=== PATIENT | female | born 1995 | race Hispanic/Latino ===

== ENCOUNTER → 2016-04-09 | Outpatient (CLI) | payer OTHER ==
[~2016-04-09] MED LIST: CEPH-507 PO; DOCU100C37 PO; FAMO-119 PO; HYDR-3812 PO; IBUP-1773 PO; NITR-65 PO; PREN1TAB86 PO
--- OUTSIDE RECORDS SUMMARY | 2016-04-09 09:05 | XMS REPORT | Continuity of Care Document ---
Author Author [facility] Organization [facility] Address Unknown Phone Unavailable Care Team Providers Care License Inspector Name Role Phone BRIGETTE NAJERA MD PCP Insurance Providers Payer Name Policy Number Subscriber Name Relationship Self Pay Pending Penny Apprv [id number] Ramón Cid 18 Self / Same As Patient Advance Directives Directive Response Recorded Date/Time Advance Directives No 02/11/16 6:20am Health Care Power of Corporate Director Of Pharmacy No 02/11/16 6:20am Organ Donor No 02/11/16 6:20am Resuscitation Status Full Code 02/11/16 6:20am Problems Active Problems Medical Problem Onset Date Status Epigastric pain Unknown Acute Pelvic pain affecting Unknown Acute Spontaneous miscarriage Unknown Acute Threatened miscarriage Unknown Acute Threatened miscarriage in early Unknown Acute Urinary tract infection Unknown Acute Vaginal bleeding in Unknown Acute Medications Current Home Medications Medication Dose Units Route Directions Days/Qty Instructions Start Date Vit W-Ca,Fe,Fa(<1 Mg) 1 Each 1 Each Oral Daily 02/01/16 Ibuprofen 600 Mg 600 Mg Oral Every 6 Hours 80 02/12/16 Hydrocodone/Acetaminophen 1 Each 1-2 Tab Oral Every 4HRS as needed for Pain 50 02/12/16 Docusate Sodium 100 Mg 100 Mg Oral Twice A Day as needed for Constipation 40 02/12/16 Past Home Medications Medication Directions Ordered Status Cephalexin 500 Mg Capsule, 500 Mg Oral Four Times Daily 10/27/14 Discontinued Famotidine 20 Mg Tablet, 20 Mg Oral Twice A Day 10/27/14 Discontinued Nitrofurantoin Monohyd/M-Cryst 100 Mg Capsule, 100 Mg Oral Twice A Day Discontinued Hydrocodone/Acetaminophen 1 Each Tablet, 1 Each Oral Every 4HRS as needed for Pain 11/26/14 Discontinued Social History Social History Problem Response Recorded Date/Time Alcohol Use Denies Use 11/26/2014 3:55pm Recreational Drug Use No 11/26/2014 3:55pm Recent Foreign Travel No 02/11/2016 6:18am Recent Infectious Disease Exposure No 02/11/2016 6:18am Sexually Transmitted Disease No 02/11/2016 6:32am HIV/AIDS No 02/11/2016 6:32am Smoking Status Never a Smoker 02/11/2016 6:31am Recent Hopitalizations No 02/11/2016 6:32am Sexually Transmitted Disease No 02/11/2016 6:32am Query Response Start Date Stop Date Smoking Status Never a Smoker Hospital Discharge Instructions Patient Instructions Physician Instructions New, Converted or Re-Newed RX: RX on Chart Additional Follow Up: Yes Orders/Referrals Dr. Segovia in 7-10 days. [facility] in 6 weeks Activity: Activity as Tolerated Driving Instructions: No Driving for 1 Week NO SMOKING: NO SMOKING Nothing Inside Vagina: No Douching, No [place], No Tampons Discharge Diet: No Restrictions Symptoms to Report to : Bleeding Excessive, Pain Increased, Fever Over 101 Degrees F, Vaginal Bleeding Increase, Questions/Concerns For Any Problems or Questions: Contact Your Physician Infection Signs and Symptoms: Increased Redness, Foul Odor of Wound, Increased Drainage, Skin Itchy or Has a Rash, Increased Swelling, Temperature Above 101 F Operative Area Clean and Dry: Keep Incision Clean/Dry Stitches/Xenia/Dermabond: Dermabond, Care of Stitches Bathing Instructions: Shower Plan of Care Discharge Date 02/13/16 3:15pm Disposition 01 HOME, SELF-CARE Instructions/Education Provided DISCHARGE SECTION DISCHARGE Forms Provided PDI Prescriptions See Medication Section Referrals (Unspecified) - Reason(s) for Referral: 1 week incision follow up appointment with on February 20 @ 3:15. 6 week post appointment with @ [facility] on March 25 @ 10:40 Additional Instructions/Education call with questions or concerns. follow up as scheduled. Care Plan and Goals See Discharge Instructions Section Functional Status Query Response Date Recorded Patient Orientation Person Place Time Situation Eyes Open Normal For Age February 13, 2016 3:21pm Allergies, Adverse Reactions, Alerts No known allergies. Immunizations No immunization records. Vital Signs Acute Vital Signs Vital Response Date/Time Temperature (Fahrenheit) 97.8 degrees F (97.6 - 99.5) 02/13/2016 2:30pm Temperature (Calculated Celsius) 36.79418 degrees C (36.4 - 37.5) 02/13/2016 2:30pm Temperature Source Temporal 02/13/2016 2:30pm Pulse Rate (adult) 83 bpm (60 - 90) 02/13/2016 2:30pm Respiratory Rate 18 bpm (12 - 24) 02/13/2016 2:30pm O2 Sat by Pulse Oximetry 98 % (88 - 100) 02/13/2016 2:30pm Blood Pressure 119/76 mm Hg 02/13/2016 2:30pm Blood Pressure Mean 90 mm Hg 02/13/2016 2:30pm Pain Numeric Pain Scale 2 02/13/2016 2:30pm Pain Intensity 2 02/13/2016 6:00am Height (Feet) 5 feet 02/11/2016 6:22am Height (Inches) 0.00 inches 02/11/2016 6:22am Height (Calculated Centimeters) 152.291219 cm 02/11/2016 6:22am Weight (Pounds) 160 pounds 02/11/2016 6:22am Weight (Ounces) 8.0 oz 02/11/2016 6:22am Weight (Calculated Grams) 35462.58 gm 02/11/2016 6:22am Weight (Calculated Kilograms) 72.193875 kilograms 02/11/2016 6:22am Calculated BMI 31.4 02/11/2016 6:22am Results Laboratory Results Test Name Result Units Flags Reference Collection Date/Time Result Date/ Time Comments White Blood Count 10.4 10^3/uL 4.3-11.0 02/12/2016 5:20am 02/12/2016 5: 52am Red Blood Count 4.27 10^6/uL L 4.35-5.85 02/12/2016 5:20am 02/12/2016 5: 52am Hemoglobin 11.9 G/DL 11.5-16.0 02/12/2016 5:02/12/2016 5:52am Hematocrit 35 % 35-52 02/12/2016 5:2002/12/2016 5:52am Mean Corpuscular Volume 83 FL 80-99 02/12/2016 5:02/12/2016 5: 52am Mean Corpuscular Hemoglobin 28 PG 25-34 02/12/2016 5:2002/12/2016 5: 52am Mean Corpuscular Hemoglobin Concent 34 G/DL 32-36 02/12/2016 5: 5:52am Red Cell Distribution Width 14.9 % H 10.0-14.5 02/12/2016 5:2015 5:52am Platelet Count 208 10^3/uL 130-400 02/12/2016 5:02/12/2016 5:52am Mean Platelet Volume 10.0 FL 7.4-10.4 02/12/2016 5:02/12/2016 5: 52am Neutrophils (%) (Auto) 64 % 42-75 02/12/2016 5:02/12/2016 5:52am Lymphocytes (%) (Auto) 20 % 12-44 02/12/2016 5:02/12/2016 5:52am Monocytes (%) (Auto) 7 % 0-12 02/12/2016 5:02/12/2016 5:52am Eosinophils (%) (Auto) 9 % 0-10 02/12/2016 5:02/12/2016 5:52am Basophils (%) (Auto) 0 % 0-10 02/12/2016 5:02/12/2016 5:52am Neutrophils # (Auto) 6.7 X 10^3 1.8-7.8 02/12/2016 5:2002/12/2016 5: 52am Lymphocytes # (Auto) 2.1 X 10^3 1.0-4.0 02/12/2016 5:02/12/2016 5: 52am Monocytes # (Auto) 0.7 X 10^3 0.0-1.0 02/12/2016 5:20am 02/12/2016 5: 52am Eosinophils # (Auto) 0.9 10^3/uL H 0.0-0.3 02/12/2016 5:20am 02/12/2016 5 :52am Basophils # (Auto) 0.0 10^3/uL 0.0-0.1 02/12/2016 5:20am 02/12/2016 5: 52am Pending Laboratory Results Test Name Collection Date/Time Pending Microbiology Results Procedure Source Collection Date/Time Procedures Procedure Status Date Provider(s) section Completed 02/11/16 IVETTE SEGOVIA DO Encounters Encounter Location Arrival/Admit Date Discharge/Depart Date Attending Provider Admitted Inpatient [facility] 02/11/16 6:01am IVETTE SEGOVIA DO Departed Clinic [facility] 02/04/16 8:29am 02/04/16 8: 50am IVETTE SEGOVIA DO Departed Clinic [facility] 02/01/16 3:50pm 02/01/16 5: 36pm BRIGETTE NAJERA MD
--- NOTE | 2016-04-09 09:52 | Diagnostic Imaging Report ---
INDICATION: Elevated liver enzymes. EXAMINATION: Liver ultrasound. FINDINGS: The liver parenchyma has homogeneous echogenicity. There are no masses. The gallbladder is clear with no stones or wall thickening. The common duct is not dilated. The pancreas and right kidney appear normal. There is no ascites. IMPRESSION: Negative gallbladder sonogram. Dictated by: Dictated on workstation # [id number]
== END ==
LOC: RAD 09:01
PROVIDERS: ATTEND Family Medicine
DX: R74.8 Abnormal levels of other serum enzymes (principal)
CPT/HCPCS: 76705

== ENCOUNTER → 2017-01-30 | Outpatient (CLI) | payer OTHER ==
--- NOTE | 2017-01-30 14:52 | Diagnostic Imaging Report ---
INDICATION: survey. TECHNIQUE: Multiple real-time grayscale images were obtained over the gravid uterus. COMPARISON: None. FINDINGS: heart rate is 142 beats per minute. The placenta is posterior. No placenta previa. Amniotic fluid appears normal. The cervix is 3.5 cm in length and is closed. There is no ventriculomegaly. The posterior fossa is normal. The bladder appears unremarkable. Two umbilical arteries are seen. The cord insertion is normal. The stomach, the kidneys, and the four-chamber view appear unremarkable. The upper spine is not well seen on this exam. The maternal adnexa are not visualized, probably obscured by bowel gas. Biometrical measurements are as follows: Biparietal 4.3 cm, age 19 weeks 1 days. Head circumference 16.0 cm, age 18 weeks 6 days. Abdominal circumference 13.4 cm, age 19 weeks 0 days. Femur length 2.9 cm, age 19 weeks 0 days. Sonographic estimate age: 19 weeks 0 days. Sonographic estimated date of delivery: 06/26/2017. Estimated Weight: 263 gm (+/- 38 gm). LMP percentile: 19%. heart rate: 142 beats per minute. number: 1 of 1. IMPRESSION: Live single intrauterine . The upper spine is not well seen due to position. Consider follow-up exam to reassess. Dictated by: Dictated on workstation # [id number]
== END ==
LOC: RAD 09:37
PROVIDERS: ATTEND Family Medicine
DX: Z36.87 Encounter for antenatal screening for uncertain dates (principal); Z3A.19 19 weeks gestation of pregnancy
CPT/HCPCS: 76805

== ENCOUNTER 2017-05-02 21:38 | Outpatient (CLI) | payer SELFPAY ==
[~2017-05-02] VITALS: Ht 149.9 cm; Wt 70.8 kg
[~2017-05-02 21:38] MED LIST changes: +ACHD5005 PO; -HYDR-3812 PO
[2017-05-02 21:54] VITALS: BP 120/66
[2017-05-02 22:06] LABS: BILIRUBIN,URINE NEGATIVE (NEGATIVE); CLARITY,URINE CLEAR; COLOR,URINE YELLOW; GLUCOSE, URINE (UA) NEGATIVE (NEGATIVE); KETONES,URINE NEGATIVE (NEGATIVE); LEUKOCYTE ESTERASE ,URINE NEGATIVE (NEGATIVE); NITRITE,URINE NEGATIVE (NEGATIVE); PH,URINE 7 (5-9); PROTEIN,URINE NEGATIVE (NEGATIVE); UROBILINOGEN,URINE NORMAL (NORMAL)
[2017-05-02 22:15] LABS: SQUAMOUS EPITHELIAL CELL,UR 0-2 /HPF
[2017-05-02] MEDS ORDERED: hydrOXYzine (VISTARIL) 25 MG CAP PO ONE (22:30)
[2017-05-02] MEDS ORDERED: TERBUTALINE INJ 1 MG/ML (BRETHINE) AMP SC ONE (23:45)
[2017-05-03 00:15] VITALS: BP 101/62
--- NOTE | 2017-05-04 15:44 | Physician Query-Final Dx ---
SOLOMON GUZMAN 05/04/17 1544: Clinic Account Progress/Dx Physician Query: Please give diagnosis Date of Service May 02, 2017 at 21:38 CRYSTAL ARGUETA MD 05/13/17 2113: Clinic Account Progress/Dx DIAGNOSIS: Diagnosis contractions SOLOMON GUZMAN May 04, 2017 15:44 CRYSTAL ARGUETA MD May 13, 2017 21:13
== END 2017-05-03 00:40 | disposition home or self-care (01) ==
LOC: WSo 21:38 → LDRP 21:39 → WSo 05-03 00:40
PROVIDERS: ATTEND Family Medicine
DX: O47.03 False labor before 37 completed weeks of gestation, third trimester (principal); Z3A.32 32 weeks gestation of pregnancy
CPT/HCPCS: 81000; 96372; 99213

== ENCOUNTER 2017-06-10 04:36 | Outpatient (CLI) | payer OTHER ==
[~2017-06-10] VITALS: Ht 149.9 cm; Wt 74.4 kg
[2017-06-10 04:44] VITALS: BP 119/71
[2017-06-10 06:26] VITALS: BP 119/71
--- NOTE | 2017-06-11 13:12 | Physician Query-Final Dx ---
KERI BE 06/11/17 1312: Clinic Account Progress/Dx Physician Query: Please give diagnosis Date of Service Jun 10, 2017 at 04:36 BRIGETTE NAJERA MD 06/12/17 0919: Clinic Account Progress/Dx DIAGNOSIS: Diagnosis 38 weeks gestation prior contractions with no cervical change KERI BE Jun 11, 2017 13:12 BRIGETTE NAJERA MD Jun 12, 2017 09:19
== END 2017-06-10 06:25 | disposition home or self-care (01) ==
LOC: LDRP 04:36 → WSo 04:36
PROVIDERS: ATTEND Family Medicine
DX: O47.1 False labor at or after 37 completed weeks of gestation (principal); O34.219 Maternal care for unspecified type scar from previous cesarean delivery; Z3A.38 38 weeks gestation of pregnancy
CPT/HCPCS: 99214

== ENCOUNTER 2017-06-10 13:02 | Outpatient (CLI) | payer OTHER ==
[~2017-06-10] VITALS: Ht 157.5 cm; Wt 75.3 kg
[2017-06-10 13:15] VITALS: BP 101/62
== END 2017-06-10 13:26 | disposition home or self-care (01) ==
LOC: PREOP 13:02
PROVIDERS: ATTEND Obstetrics & Gynecology
DX: Z01.818 Encounter for other preprocedural examination (principal); Z11.2 Encounter for screening for other bacterial diseases; O34.211 Maternal care for low transverse scar from previous cesarean delivery
CPT/HCPCS: 87081

== ENCOUNTER 2017-06-18 06:50 | Inpatient (IN) | payer OTHER ==
[~2017-06-18] VITALS: Ht 157.5 cm; Wt 73.9 kg
[2017-06-18] VITALS (7 sets, daily range): BP systolic 92–129; BP diastolic 59–74
[2017-06-18] MEDS ORDERED: FAMOTIDINE 20MG/2ML IV (PEPCID) IV ONE (07:15)
[2017-06-18] MEDS ORDERED: CITRIC ACID/SOB CIT (BICITRA) 30 ML UDC PO ONE (07:15)
[2017-06-18] MEDS ORDERED: ceFAZolin 2 GM IV Premixed 50 ML IV ONE (07:15)
[2017-06-18] MEDS ORDERED: METOCLOPRAMIDE INJ 10 MG/2 ML (REGLAN) IV ONE (07:15)
--- NOTE | 2017-06-18 07:24 | Progress Note-Pre Operative ---
Pre-Operative Progress Note H&P Reviewed The H&P was reviewed, patient examined and no changes noted. Date Seen by Provider: Jun 18, 2017 Time Seen by Provider: 07:20 Date H&P Reviewed: Jun 18, 2017 Time H&P Reviewed: 07:20 Pre-Operative Diagnosis: Previous , 39 weeks IVETTE PEREZ DO Jun 18, 2017 7:24 am
[2017-06-18] MEDS: LACTATED RINGERS 1,000 ML IV PRN ×2 (07:30→08:31)
[2017-06-18 07:55] LABS: BASOPHILS % (AUTO) 0 % (0-10); EOSINOPHILS # (AUTO) 1.1 10^3/uL (0.0-0.3); EOSINOPHILS % (AUTO) 10 % (0-10); HEMATOCRIT 37 % (35-52); HEMOGLOBIN 12.6 G/DL (11.5-16.0); LYMPHOCYTES # (AUTO) 1.5 X 10^3 (1.0-4.0); LYMPHOCYTES % (AUTO) 14 % (12-44); MEAN CORPUSCULAR HEMOGLOBIN 28 PG (25-34); MEAN CORPUSCULAR HGB CONC 34 G/DL (32-36); MEAN CORPUSCULAR VOLUME 81 FL (80-99); MEAN PLATELET VOLUME 10.4 FL (7.4-10.4); MONOCYTES # (AUTO) 0.9 X 10^3 (0.0-1.0); MONOCYTES % (AUTO) 8 % (0-12); NEUTROPHILS # (AUTO) 7.4 X 10^3 (1.8-7.8); NEUTROPHILS % (AUTO) 68 % (42-75); PLATELET COUNT 195 10^3/uL (130-400); RED CELL DISTRIBUTION WIDTH 16.6 % (10.0-14.5); WHITE BLOOD COUNT 10.9 10^3/uL (4.3-11.0)
[2017-06-18 08:04] LABS: BILIRUBIN,URINE NEGATIVE (NEGATIVE); CLARITY,URINE CLEAR; COLOR,URINE YELLOW; GLUCOSE, URINE (UA) NEGATIVE (NEGATIVE); KETONES,URINE NEGATIVE (NEGATIVE); LEUKOCYTE ESTERASE ,URINE 1+ (NEGATIVE); NITRITE,URINE NEGATIVE (NEGATIVE); PH,URINE 7 (5-9); PROTEIN,URINE NEGATIVE (NEGATIVE); UROBILINOGEN,URINE NORMAL (NORMAL)
[2017-06-18 08:35] LABS: BACTERIA,URINE TRACE /HPF
[2017-06-18] MEDS ORDERED: DEXAMETHASONE 10 MG/ML (DECADRON) 1 ML VIAL ONE (08:39)
[2017-06-18] MEDS ORDERED: ONDANSETRON 4 MG/2 ML (SDV) Z0FRAN ONE (08:39)
[2017-06-18] MEDS ORDERED: fentaNYL INJECTION 100 MCG/2 ML AMP ONE (08:42)
[2017-06-18] MEDS ORDERED: OXYTOCIN/NORMAL SALINE 1,000 ML IV ONE (08:59)
[2017-06-18] MEDS ORDERED: KETOROLAC 30 MG/ML VIAL ONE (09:02)
[2017-06-18] MEDS: KETOROLAC 30 MG/ML VIAL IVP SCH ×3 (09:30→23:10)
[2017-06-18] MEDS ORDERED: PHENYLEPHRINE 100 MCG/ML 10 ML (ANESTHESIA) SYR ONE (09:42)
[2017-06-18] MEDS ORDERED: OXYTOCIN/NORMAL SALINE 500 ML IV SCH (09:48)
--- NOTE | 2017-06-18 09:50 | Discharge Inst-Women's Service ---
Discharge Inst-Women's Serv Depart Medication/Instructions New, Converted or Re-Newed RX: RX on Chart Consults/Follow Up Additional Follow Up: Yes Orders/Referrals DR. Segovia in 7-[address] Gtz in 6 weeks Activity Activity: Activity as Tolerated Driving Instructions: No Driving for 1 Week NO SMOKING: NO SMOKING Nothing Inside Vagina: No Douching, No [place], No Tampons Diet Discharge Diet: No Restrictions Symptoms to Report to : Bleeding Excessive, Pain Increased, Fever Over 101 Degrees F, Vaginal Bleeding Increase, Questions/Concerns For Any Problems or Questions: Contact Your Physician Skin/Wound Care Infection Signs and Symptoms: Increased Redness, Foul Odor of Wound, Increased Drainage, Skin Itchy or Has a Rash, Increased Swelling, Temperature Above 101 F Operative Area Clean and Dry: Keep Incision Clean/Dry Stitches/[place]/Dermabond: Dermabond, Care of Stitches Bathing Instructions: IVETTE Chow DO Jun 18, 2017 9:50 am
[2017-06-18] MEDS ORDERED: DOCU100C37 PO (09:52)
[2017-06-18] MEDS ORDERED: ACHD5005 PO (09:52)
[2017-06-18] MEDS ORDERED: IBUP-1773 PO (09:52)
[2017-06-18] MEDS ORDERED: ONDANSETRON 4 MG/2 ML (SDV) Z0FRAN IVP PRN (10:00)
[2017-06-18] MEDS ORDERED: HYDROmorphone (DILAUDID) 2 MG/ML VIAL IVP PRN (10:00)
[2017-06-18] MEDS ORDERED: TETANUS,DIPTH,PERTUSS P/F (BOOSTRIX) 0.5 ML VIAL IM SCH (10:00)
[2017-06-18] MEDS ORDERED: MEASLES,MUMPS,RUBELLA 1 EA INJ SC SCH (10:00)
--- OUTSIDE RECORDS SUMMARY | 2017-06-18 11:07 | XMS REPORT | Continuity of Care Document ---
Author Author [facility] Organization [facility] Address Unknown Phone Unavailable Allergies Active Description Code Type Severity Reaction Onset Reported/Identified Relationship to Patient Clinical Status Yes No Known Drug Allergies [id number] Drug Allergy Unknown N/A 06/10/2017 Medications There is no data. Problems Date Dx Coded Attending Type Code Diagnosis Diagnosed By 10/27/2014 YULIA CARSON MD Ot 599.0 URIN TRACT INFECTION NOS 10/27/2014 YULIA CARSON MD Ot 789.04 ABDOMINAL PAIN, LEFT LOWER QUADRANT 10/27/2014 YULIA CARSON MD Ot 789.06 ABDOMINAL PAIN, EPIGASTRIC 10/27/2014 YULIA CARSON MD Ot N39.0 URINARY TRACT INFECTION, SITE NOT SPECIF 10/27/2014 YULIA CARSON MD Ot R10.13 EPIGASTRIC PAIN 11/22/2014 YULIA CARSON MD Ot 623.8 NONINFLAM DIS VAGINA NEC 11/22/2014 YULIA CARSON MD Ot 640.03 THREATEN ABORT-ANTEPART 11/22/2014 YULIA CARSON MD Ot O20.0 THREATENED 11/25/2014 LANA FARLEY DOA Rocio Ot 599.0 URIN TRACT INFECTION NOS 11/25/2014 LANA FARLEY DOA K Ot 640.03 THREATEN ABORT-ANTEPART 11/25/2014 LANA FARLEY DOA K Ot 646.63 INFECTION-ANTEPARTUM 11/25/2014 GUANAKO FARLEY DO K Ot N39.0 URINARY TRACT INFECTION, SITE NOT SPECIF 11/25/2014 LANA FARLEY DOA K Ot O20.0 THREATENED 11/26/2014 DEBBIE MARX Ot 623.8 NONINFLAM DIS VAGINA NEC 11/26/2014 DEBBIE MARX Ot 634.90 SPON ABORT UNCOMPL-UNSP 11/26/2014 [place], DEBBIE Jaquez Ot O03.9 COMPLETE OR UNSP SPONTANEOUS [place] 08/10/2015 OCTAVIO GILLILAND DO Ot 640.03 THREATEN ABORT-ANTEPART 08/10/2015 OCTAVIO GILLILAND DO Ot 659.73 ABN FET HT RT/RHYTHM,ANTEPARTUM COND OR 08/14/2015 BRIGETTE NAJERA MD Ot O34.21 MATERNAL CARE FOR SCAR FROM PREVIOUS CRISTÓBAL 08/14/2015 BRIGETTE NAJERA MD Ot Z3A.12 12 WEEKS GESTATION OF 08/14/2015 BRIGETTE NAJERA MD, Ot O34.21 MATERNAL CARE FOR SCAR FROM PREVIOUS CRISTÓBAL 08/14/2015 BRIGETTE NAJERA MD, Ot Z3A.12 12 WEEKS GESTATION OF 08/28/2015 OCTAVIO GILLILAND DO Ot 640.03 THREATEN ABORT-ANTEPART 08/28/2015 OCTAVIO GILLILAND DO Ot 659.73 ABN FET HT RT/RHYTHM,ANTEPARTUM COND OR 08/28/2015 BRIGETTE NAJERA MD Ot O34.21 MATERNAL CARE FOR SCAR FROM PREVIOUS CRISTÓBAL 08/28/2015 BRIGETTE NAJERA MD Ot Z3A.12 12 WEEKS GESTATION OF 08/28/2015 OCTAVIO GILLILAND DO Ot 640.03 THREATEN ABORT-ANTEPART 08/28/2015 OCTAVIO GILLILAND DO Ot 659.73 ABN FET HT RT/RHYTHM,ANTEPARTUM COND OR 08/28/2015 BRIGETTE NAJERA MD Ot O34.21 MATERNAL CARE FOR SCAR FROM PREVIOUS CRISTÓBAL 08/28/2015 BRIGETTE NAJERA MD Ot Z3A.12 12 WEEKS GESTATION OF 08/28/2015 OCTAVIO GILLILAND DO Ot 640.03 THREATEN ABORT-ANTEPART 08/28/2015 OCTAVIO GILLILAND DO Ot 659.73 ABN FET HT RT/RHYTHM,ANTEPARTUM COND OR 10/16/2015 OCTAVIO GILLILAND DO Ot 640.03 THREATEN ABORT-ANTEPART 10/16/2015 OCTAVIO GILLILAND DO Ot 659.73 ABN FET HT RT/RHYTHM,ANTEPARTUM COND OR 10/16/2015 BRIGETTE NAJERA MD Ot O34.21 MATERNAL CARE FOR SCAR FROM PREVIOUS CRISTÓBAL 10/16/2015 BRIGETTE NAJERA MD, Ot Z3A.12 12 WEEKS GESTATION OF 10/22/2015 OCTAVIO GILLILAND DO Ot 640.03 THREATEN ABORT-ANTEPART 10/22/2015 OCTAVIO GILLILAND DO Ot 659.73 ABN FET HT RT/RHYTHM,ANTEPARTUM COND OR 10/22/2015 BRIGETTE NAJERA MD Ot O34.21 MATERNAL CARE FOR SCAR FROM PREVIOUS CRISTÓBAL 10/22/2015 BRIGETTE NAJERA MD, Ot Z3A.12 12 WEEKS GESTATION OF 10/22/2015 BRIGETTE NAJERA MD, Ot O34.21 MATERNAL CARE FOR SCAR FROM PREVIOUS CRISTÓBAL 10/22/2015 BRIGETTE NAJERA MD, Ot Z36 ENCOUNTER FOR SCREENING OF MOT 10/22/2015 BRIGETTE NAJERA MD, Ot Z3A.22 22 WEEKS GESTATION OF 10/22/2015 OCTAVIO GILLILAND DO, Ot 640.03 THREATEN ABORT-ANTEPART 10/22/2015 OCTAVIO GILLILAND DO Ot 659.73 ABN FET HT RT/RHYTHM,ANTEPARTUM COND OR 11/20/2015 BRIGETTE NAJERA MD, Ot O34.21 MATERNAL CARE FOR SCAR FROM PREVIOUS CRISTÓBAL 11/20/2015 BRIGETTE NAJERA MD Ot Z36 ENCOUNTER FOR SCREENING OF MOT 11/20/2015 BRIGETTE NAJERA MD, Ot Z3A.22 22 WEEKS GESTATION OF 02/01/2016 BRIGETTE NAJERA MD, Ot Z34.82 ENCOUNTER FOR SUPRVSN OF NORMAL PREGNANC 02/04/2016 IVETTE PEREZ DO Ot O34.211 MATERN CARE FOR LOW TRANSVERSE SCAR FROM 02/04/2016 IVETTE PEREZ DO Ot Z01.818 ENCOUNTER FOR OTHER PREPROCEDURAL EXAMIN 02/04/2016 IVETTE PEREZ DO Ot Z11.2 ENCOUNTER FOR SCREENING FOR OTHER BACTER 02/05/2016 IVETTE PEREZ DO Ot O34.211 MATERN CARE FOR LOW TRANSVERSE SCAR FROM 02/05/2016 IVETTE PEREZ DO Ot Z01.818 ENCOUNTER FOR OTHER PREPROCEDURAL EXAMIN 02/05/2016 IVETTE PEREZ DO Ot Z11.2 ENCOUNTER FOR SCREENING FOR OTHER BACTER 02/12/2016 OCTAVIO GILLILAND DO Ot 640.03 THREATEN ABORT-ANTEPART 02/12/2016 COTAVIO GILLILAND DO Ot 659.73 ABN FET HT RT/RHYTHM,ANTEPARTUM COND OR 02/12/2016 BRIGETTE NAJERA MD, Ot O34.21 MATERNAL CARE FOR SCAR FROM PREVIOUS CRISTÓBAL 02/12/2016 BRIGETTE NAJERA MD Ot Z3A.12 12 WEEKS GESTATION OF 02/12/2016 BRIGETTE NAJERA MD Ot O34.21 MATERNAL CARE FOR SCAR FROM PREVIOUS CRISTÓBAL 02/12/2016 BRIGETTE NAJERA MD Ot Z36 ENCOUNTER FOR SCREENING OF MOT 02/12/2016 BRIGETTE NAJERA MD, Ot Z3A.22 22 WEEKS GESTATION OF 02/13/2016 [facility] IVETTE TORRES Ot O34.211 MATERN CARE FOR LOW TRANSVERSE SCAR FROM 02/13/2016 [facility] IVETTE TORRES Ot Z37.0 SINGLE LIVE 02/13/2016 IVETTE PEREZ DO Ot Z3A.39 39 WEEKS GESTATION OF 02/18/2016 BRIGETTE NAJERA MD Ot Z34.82 ENCOUNTER FOR SUPRVSN OF NORMAL PREGNANC 02/29/2016 OCTAVIO GILLILAND DO Ot 640.03 THREATEN ABORT-ANTEPART 02/29/2016 OCTAVIO GILLILAND DO Ot 659.73 ABN FET HT RT/RHYTHM,ANTEPARTUM COND OR 02/29/2016 BRIGETTE NAJERA MD Ot O34.21 MATERNAL CARE FOR SCAR FROM PREVIOUS CRISTÓBAL 02/29/2016 BRIGETTE NAJERA MD, Ot Z3A.12 12 WEEKS GESTATION OF 02/29/2016 BRIGETTE NAJERA MD Ot O34.21 MATERNAL CARE FOR SCAR FROM PREVIOUS CRISTÓBAL 02/29/2016 BRIGETTE NAJERA MD Ot Z36 ENCOUNTER FOR SCREENING OF MOT 02/29/2016 BRIGETTE NAJERA MD, Ot Z3A.22 22 WEEKS GESTATION OF 03/01/2016 BRIGETTE NAJERA MD Ot Z34.82 ENCOUNTER FOR SUPRVSN OF NORMAL PREGNANC 04/09/2016 OCTAVIO GILLILAND DO Ot 640.03 THREATEN ABORT-ANTEPART 04/09/2016 OCTAVIO GILLILAND DO Ot 659.73 ABN FET HT RT/RHYTHM,ANTEPARTUM COND OR 04/09/2016 BRIGETTE NAJERA MD Ot O34.21 MATERNAL CARE FOR SCAR FROM PREVIOUS CRISTÓBAL 04/09/2016 BRIGETTE NAJERA MD, Ot Z3A.12 12 WEEKS GESTATION OF 04/09/2016 BRIGETTE NAJERA MD, Ot O34.21 MATERNAL CARE FOR SCAR FROM PREVIOUS CRISTÓBAL 04/09/2016 BRIGETTE NAJERA MD, Ot Z36 ENCOUNTER FOR SCREENING OF MOT 04/09/2016 BRIGETTE NAJERA MD, Ot Z3A.22 22 WEEKS GESTATION OF 04/11/2016 BRIGETTE NAJERA MD, Ot R74.8 ABNORMAL LEVELS OF OTHER SERUM ENZYMES 04/15/2016 BRIGETTE NAJERA MD, Ot R74.8 ABNORMAL LEVELS OF OTHER SERUM ENZYMES 04/21/2016 BRIGETTE NAJERA MD, Ot R74.8 ABNORMAL LEVELS OF OTHER SERUM ENZYMES 04/22/2016 BRIGETTE NAJERA MD, Ot R74.8 ABNORMAL LEVELS OF OTHER SERUM ENZYMES 01/30/2017 GILLIL[place] DO OCTAVIO K Ot 640.03 THREATEN ABORT-ANTEPART 01/30/2017 [place] DO, OCTAVIO K Ot 659.73 ABN FET HT RT/RHYTHM,ANTEPARTUM COND OR 01/30/2017 BRIGETTE NAJERA MD Ot O34.21 MATERNAL CARE FOR SCAR FROM PREVIOUS CRISTÓBAL 01/30/2017 BRIGETTE NAJERA MD, Ot Z3A.12 12 WEEKS GESTATION OF 01/30/2017 BRIGETTE NAJERA MD, Ot O34.21 MATERNAL CARE FOR SCAR FROM PREVIOUS CRISTÓBAL 01/30/2017 BRIGETTE NAJERA MD, Ot Z36 ENCOUNTER FOR SCREENING OF MOT 01/30/2017 BRIGETTE NAJERA MD, Ot Z3A.22 22 WEEKS GESTATION OF 01/30/2017 BRIGETTE NAJERA MD, Ot R74.8 ABNORMAL LEVELS OF OTHER SERUM ENZYMES 02/02/2017 BRIGETTE NAJERA MD Ot Z36.87 ENCOUNTER FOR SCREENING FOR UN 02/02/2017 BRIGETTE NAJERA MD, Ot Z3A.19 19 WEEKS GESTATION OF 02/26/2017 BRIGETTE NAJERA MD, Ot Z36.87 ENCOUNTER FOR SCREENING FOR UN 02/26/2017 BRIGETTE NAJERA MD, Ot Z3A.19 19 WEEKS GESTATION OF 03/30/2017 BRIGETTE NAJERA MD Ot Z36.87 ENCOUNTER FOR SCREENING FOR UN 03/30/2017 BRIGETTE NAJERA MD, Ot Z3A.19 19 WEEKS GESTATION OF 05/02/2017 OCTAVIO GILLILAND DO K Ot 640.03 THREATEN ABORT-ANTEPART 05/02/2017 ALAN GILLILAND DOA K Ot 659.73 ABN FET HT RT/RHYTHM,ANTEPARTUM COND OR 05/02/2017 BRIGETTE NAJERA MD Ot O34.21 MATERNAL CARE FOR SCAR FROM PREVIOUS CRISTÓBAL 05/02/2017 BRIGETTE NAJERA MD, Ot Z3A.12 12 WEEKS GESTATION OF 05/02/2017 BRIGETTE NAJERA MD, Ot O34.21 MATERNAL CARE FOR SCAR FROM PREVIOUS CRISTÓBAL 05/02/2017 BRIGETTE NAJERA MD, Ot Z36 ENCOUNTER FOR SCREENING OF MOT 05/02/2017 BRIGETTE NAJERA MD, Ot Z3A.22 22 WEEKS GESTATION OF 05/02/2017 BRIGETTE NAJERA MD, Ot R74.8 ABNORMAL LEVELS OF OTHER SERUM ENZYMES 05/02/2017 BRIGETTE NAJERA MD, Ot Z36.87 ENCOUNTER FOR SCREENING FOR UN 05/02/2017 BRIGETTE NAJERA MD, Ot Z3A.19 19 WEEKS GESTATION OF 05/03/2017 BRIGETTE NAJERA MD, Ot O47.03 FALSE LABOR BEFORE 37 COMPLETED WEEKS OF 05/03/2017 BRIGETTE NAJERA MD, Ot Z3A.32 32 WEEKS GESTATION OF 05/05/2017 OCTAVIO GILLILAND DO K Ot 640.03 THREATEN ABORT-ANTEPART 05/05/2017 ALAN GILLILAND DOA K Ot 659.73 ABN FET HT RT/RHYTHM,ANTEPARTUM COND OR 05/05/2017 BRIGETTE NAJERA MD Ot O34.21 MATERNAL CARE FOR SCAR FROM PREVIOUS CRISTÓBAL 05/05/2017 BRIGETTE NAJERA MD, Ot Z3A.12 12 WEEKS GESTATION OF 05/05/2017 BRIGETTE NAJERA MD Ot O34.21 MATERNAL CARE FOR SCAR FROM PREVIOUS CRISTÓBAL 05/05/2017 BRIGETTE NAJERA MD Ot Z36 ENCOUNTER FOR SCREENING OF MOT 05/05/2017 BRIGETTE NAJERA MD Ot Z3A.22 22 WEEKS GESTATION OF 05/05/2017 BRIGETTE NAJERA MD Ot R74.8 ABNORMAL LEVELS OF OTHER SERUM ENZYMES 05/05/2017 BRIGETTE NAJERA MD, Ot Z36.87 ENCOUNTER FOR SCREENING FOR UN 05/05/2017 BRIGETTE NAJERA MD, Ot Z3A.19 19 WEEKS GESTATION OF 05/14/2017 BRIGETTE NAJERA MD, Ot O47.03 FALSE LABOR BEFORE 37 COMPLETED WEEKS OF 05/14/2017 BRIGETTE NAJERA MD, Ot Z3A.32 32 WEEKS GESTATION OF 06/10/2017 OCTAVIO GILLILAND DO Ot 640.03 THREATEN ABORT-ANTEPART 06/10/2017 OCTAVIO GILLILAND DO Ot 659.73 ABN FET HT RT/RHYTHM,ANTEPARTUM COND OR 06/10/2017 BRIGETTE NAJERA MD, Ot O34.21 MATERNAL CARE FOR SCAR FROM PREVIOUS CRISTÓBAL 06/10/2017 BRIGETTE NAJERA MD, Ot Z3A.12 12 WEEKS GESTATION OF 06/10/2017 BRIGETTE NAJERA MD, Ot O34.21 MATERNAL CARE FOR SCAR FROM PREVIOUS CRISTÓBAL 06/10/2017 BRIGETTE NAJERA MD Ot Z36 ENCOUNTER FOR SCREENING OF MOT 06/10/2017 BRIGETTE NAJERA MD Ot Z3A.22 22 WEEKS GESTATION OF 06/10/2017 BRIGETTE NAJERA MD, Ot R74.8 ABNORMAL LEVELS OF OTHER SERUM ENZYMES 06/10/2017 BRIGETTE NAJERA MD, Ot Z36.87 ENCOUNTER FOR SCREENING FOR UN 06/10/2017 BRIGETTE NAJERA MD, Ot Z3A.19 19 WEEKS GESTATION OF 06/10/2017 OCTAVIO GILLILAND DO Ot 640.03 THREATEN ABORT-ANTEPART 06/10/2017 OCTAVIO GILLILAND DO Ot 659.73 ABN FET HT RT/RHYTHM,ANTEPARTUM COND OR 06/10/2017 BRIGETTE NAJERA MD Ot O34.21 MATERNAL CARE FOR SCAR FROM PREVIOUS CRISTÓBAL 06/10/2017 BRIGETTE NAJERA MD, Ot Z3A.12 12 WEEKS GESTATION OF 06/10/2017 BRIGETTE NAJERA MD Ot O34.21 MATERNAL CARE FOR SCAR FROM PREVIOUS CRISTÓBAL 06/10/2017 BRIGETTE NAJERA MD Ot Z36 ENCOUNTER FOR SCREENING OF MOT 06/10/2017 BRIGETTE NAJERA MD Ot Z3A.22 22 WEEKS GESTATION OF 06/10/2017 BRIGETTE NAJERA MD, Ot R74.8 ABNORMAL LEVELS OF OTHER SERUM ENZYMES 06/10/2017 BRIGETTE NAJERA MD, Ot Z36.87 ENCOUNTER FOR SCREENING FOR UN 06/10/2017 BRIGETTE NAJERA MD, Ot Z3A.19 19 WEEKS GESTATION OF 06/11/2017 IVETTE PEREZ DO Ot O34.211 MATERN CARE FOR LOW TRANSVERSE SCAR FROM 06/11/2017 IVETTE PEREZ DO Ot Z01.818 ENCOUNTER FOR OTHER PREPROCEDURAL EXAMIN 06/11/2017 IVETTE PEREZ DO, Ot Z11.2 ENCOUNTER FOR SCREENING FOR OTHER BACTER 06/12/2017 BRIGETTE NAJERA MD, Ot O34.219 MATERNAL CARE FOR UNSP TYPE SCAR FROM KS 06/12/2017 BRIGETTE NAJERA MD, Ot O47.1 FALSE LABOR AT OR AFTER 37 COMPLETED WEE 06/12/2017 BRIGETTE NAJERA MD, Ot Z3A.38 38 WEEKS GESTATION OF Procedures Code Description Performed By Performed On [id number] EXTRACTION OF POC, LOW CERVICAL, OPEN AP 02/11/2016 Results Test Result Range Complete urinalysis with reflex to culture - 02/01/16 16:00 Urine color determination YELLOW NRG Urine clarity determination CLEAR NRG Urine pH measurement by test strip 8 5-9 Specific gravity of urine by test strip 1.010 1.016- 1.022 Urine protein assay by test strip, semi-quantitative NEGATIVE NEGATIVE Urine glucose detection by automated test strip NEGATIVE NEGATIVE Erythrocytes detection in urine sediment by light microscopy NEGATIVE NEGATIVE Urine ketones detection by automated test strip NEGATIVE NEGATIVE Urine nitrite detection by test strip NEGATIVE NEGATIVE Urine total bilirubin detection by test strip NEGATIVE NEGATIVE Urine urobilinogen measurement by automated test strip (mass/volume) NORMAL NORMAL Urine leukocyte esterase detection by dipstick NEGATIVE NEGATIVE Automated urine sediment erythrocyte count by microscopy (number/high power field) NONE NRG Automated urine sediment leukocyte count by microscopy (number/high power field ) RARE NRG Bacteria detection in urine sediment by light microscopy TRACE NRG Squamous epithelial cells detection in urine sediment by light microscopy 2-5 NRG Crystals detection in urine sediment by light microscopy NONE NRG Casts detection in urine sediment by light microscopy NONE NRG Mucus detection in urine sediment by light microscopy NEGATIVE NRG Complete urinalysis with reflex to culture NO NRG Urine protein/creatinine mass ratio - 02/01/16 16:00 Urine protein measurement (mass/volume) < mg/dL 6-12 Urine creatinine measurement (mass/volume) 20 mg/dL 30- 125 Urine protein/creatinine mass ratio TNP NR Complete blood count (CBC) with automated white blood cell (WBC) differential - 02/01/16 16:14 Blood leukocytes automated count (number/volume) 11.6 10*3/uL 4.3-11.0 Blood erythrocytes automated count (number/volume) 4.60 10*6/uL 4.35-5.85 Venous blood hemoglobin measurement (mass/volume) 12.9 g/dL 11.5-16.0 Blood hematocrit (volume fraction) 38 % 35-52 Automated erythrocyte mean corpuscular volume 83 [foz_us] 80-99 Automated erythrocyte mean corpuscular hemoglobin (mass per erythrocyte) 28 pg 25-34 Automated erythrocyte mean corpuscular hemoglobin concentration measurement ( mass/volume) 34 g/dL 32-36 Automated erythrocyte distribution width ratio 15.0 % 10.0-14.5 Automated blood platelet count (count/volume) 248 10*3/uL 130-400 Automated blood platelet mean volume measurement 9.8 [foz_us] 7.4-10.4 Automated blood neutrophils/100 leukocytes 71 % 42-75 Automated blood lymphocytes/100 leukocytes 14 % 12-44 Blood monocytes/100 leukocytes 8 % 0-12 Automated blood eosinophils/100 leukocytes 7 % 0-10 Automated blood basophils/100 leukocytes 0 % 0-10 Blood neutrophils automated count (number/volume) 8.2 10*3 1.8-7.8 Blood lymphocytes automated count (number/volume) 1.7 10*3 1.0-4.0 Blood monocytes automated count (number/volume) 0.9 10*3 0.0-1.0 Automated eosinophil count 0.8 10*3/uL 0.0-0.3 Automated blood basophil count (count/volume) 0.0 10*3/uL 0.0-0.1 Comprehensive metabolic panel - 02/01/16 16:14 Serum or plasma sodium measurement (moles/volume) 137 mmol/L 135-145 Serum or plasma potassium measurement (moles/volume) 3.9 mmol/L 3.6-5.0 Serum or plasma chloride measurement (moles/volume) 107 mmol/L 98-107 Carbon dioxide 20 mmol/L 21-32 Serum or plasma anion gap determination (moles/volume) 10 mmol/L 5-14 Serum or plasma urea nitrogen measurement (mass/volume) 4 mg/dL 7-18 Serum or plasma creatinine measurement (mass/volume) 0.49 mg/dL 0.60-1.30 Serum or plasma urea nitrogen/creatinine mass ratio 8 NRG Serum or plasma creatinine measurement with calculation of estimated glomerular filtration rate > NRG Serum or plasma glucose measurement (mass/volume) 87 mg/dL 70-105 Serum or plasma calcium measurement (mass/volume) 9.0 mg/dL 8.5-10.1 Serum or plasma total bilirubin measurement (mass/volume) 0.3 mg/dL 0.1-1.0 Serum or plasma alkaline phosphatase measurement (enzymatic activity/volume) 222 U/L 40-136 Serum or plasma aspartate aminotransferase measurement (enzymatic activity/ volume) 28 U/L 5-34 Serum or plasma alanine aminotransferase measurement (enzymatic activity/volume ) 20 U/L 0-55 Serum or plasma protein measurement (mass/volume) 7.3 g/dL 6.4-8.2 Serum or plasma albumin measurement (mass/volume) 3.7 g/dL 3.2-4.5 Serum or plasma uric acid measurement (mass/volume) - 02/01/16 16:14 Serum or plasma uric acid measurement (mass/volume) 2.9 mg/dL 2.6-7.2 Lactate dehydrogenase 1 [enzymatic activity/volume] in serum or plasma - 16:14 Lactate dehydrogenase 1 [enzymatic activity/volume] in serum or plasma 193 U/L 125-220 Methicillin resistant Staphylococcus aureus (MRSA) screening culture - 08:47 Methicillin resistant Staphylococcus aureus (MRSA) screening culture NEG NRG Complete blood count (CBC) with automated white blood cell (WBC) differential - 02/11/16 06:10 Blood leukocytes automated count (number/volume) 10.3 10*3/uL 4.3-11.0 Blood erythrocytes automated count (number/volume) 4.53 10*6/uL 4.35-5.85 Venous blood hemoglobin measurement (mass/volume) 12.6 g/dL 11.5-16.0 Blood hematocrit (volume fraction) 37 % 35-52 Automated erythrocyte mean corpuscular volume 82 [foz_us] 80-99 Automated erythrocyte mean corpuscular hemoglobin (mass per erythrocyte) 28 pg 25-34 Automated erythrocyte mean corpuscular hemoglobin concentration measurement ( mass/volume) 34 g/dL 32-36 Automated erythrocyte distribution width ratio 14.9 % 10.0-14.5 Automated blood platelet count (count/volume) 229 10*3/uL 130-400 Automated blood platelet mean volume measurement 9.8 [foz_us] 7.4-10.4 Automated blood neutrophils/100 leukocytes 67 % 42-75 Automated blood lymphocytes/100 leukocytes 20 % 12-44 Blood monocytes/100 leukocytes 6 % 0-12 Automated blood eosinophils/100 leukocytes 7 % 0-10 Automated blood basophils/100 leukocytes 0 % 0-10 Blood neutrophils automated count (number/volume) 6.9 10*3 1.8-7.8 Blood lymphocytes automated count (number/volume) 2.0 10*3 1.0-4.0 Blood monocytes automated count (number/volume) 0.7 10*3 0.0-1.0 Automated eosinophil count 0.7 10*3/uL 0.0-0.3 Automated blood basophil count (count/volume) 0.0 10*3/uL 0.0-0.1 Blood type T Indirect antibody screen panel - 02/11/16 06:10 ABO+Rh group OP NRG Transfusion band number [id number] [facility] Blood group antibody screen NEGATIVE [facility] Complete blood count (CBC) with automated white blood cell (WBC) differential - 02/12/16 05:20 Blood leukocytes automated count (number/volume) 10.4 10*3/uL 4.3-11.0 Blood erythrocytes automated count (number/volume) 4.27 10*6/uL 4.35-5.85 Venous blood hemoglobin measurement (mass/volume) 11.9 g/dL 11.5-16.0 Blood hematocrit (volume fraction) 35 % 35-52 Automated erythrocyte mean corpuscular volume 83 [foz_us] 80-99 Automated erythrocyte mean corpuscular hemoglobin (mass per erythrocyte) 28 pg 25-34 Automated erythrocyte mean corpuscular hemoglobin concentration measurement ( mass/volume) 34 g/dL 32-36 Automated erythrocyte distribution width ratio 14.9 % 10.0-14.5 Automated blood platelet count (count/volume) 208 10*3/uL 130-400 Automated blood platelet mean volume measurement 10.0 [foz_us] 7.4-10.4 Automated blood neutrophils/100 leukocytes 64 % 42-75 Automated blood lymphocytes/100 leukocytes 20 % 12-44 Blood monocytes/100 leukocytes 7 % 0-12 Automated blood eosinophils/100 leukocytes 9 % 0-10 Automated blood basophils/100 leukocytes 0 % 0-10 Blood neutrophils automated count (number/volume) 6.7 10*3 1.8-7.8 Blood lymphocytes automated count (number/volume) 2.1 10*3 1.0-4.0 Blood monocytes automated count (number/volume) 0.7 10*3 0.0-1.0 Automated eosinophil count 0.9 10*3/uL 0.0-0.3 Automated blood basophil count (count/volume) 0.0 10*3/uL 0.0-0.1 Complete urinalysis with reflex to culture - 05/02/17 21:45 Urine color determination YELLOW NRG Urine clarity determination CLEAR NRG Urine pH measurement by test strip 7 5-9 Specific gravity of urine by test strip 1.010 1.016- 1.022 Urine protein assay by test strip, semi-quantitative NEGATIVE NEGATIVE Urine glucose detection by automated test strip NEGATIVE NEGATIVE Erythrocytes detection in urine sediment by light microscopy NEGATIVE NEGATIVE Urine ketones detection by automated test strip NEGATIVE NEGATIVE Urine nitrite detection by test strip NEGATIVE NEGATIVE Urine total bilirubin detection by test strip NEGATIVE NEGATIVE Urine urobilinogen measurement by automated test strip (mass/volume) NORMAL NORMAL Urine leukocyte esterase detection by dipstick NEGATIVE NEGATIVE Automated urine sediment erythrocyte count by microscopy (number/high power field) NONE NRG Automated urine sediment leukocyte count by microscopy (number/high power field ) NONE NRG Bacteria detection in urine sediment by light microscopy NONE NRG Squamous epithelial cells detection in urine sediment by light microscopy 0-2 NRG Crystals detection in urine sediment by light microscopy NONE NRG Casts detection in urine sediment by light microscopy NONE NRG Mucus detection in urine sediment by light microscopy NEGATIVE NRG Complete urinalysis with reflex to culture NO NRG Methicillin resistant Staphylococcus aureus (MRSA) screening culture - 13:24 Methicillin resistant Staphylococcus aureus (MRSA) screening culture NEG NRG Complete blood count (CBC) with automated white blood cell (WBC) differential - 06/18/17 07:30 Blood leukocytes automated count (number/volume) 10.9 10*3/uL 4.3-11.0 Blood erythrocytes automated count (number/volume) 4.50 10*6/uL 4.35-5.85 Venous blood hemoglobin measurement (mass/volume) 12.6 g/dL 11.5-16.0 Blood hematocrit (volume fraction) 37 % 35-52 Automated erythrocyte mean corpuscular volume 81 [foz_us] 80-99 Automated erythrocyte mean corpuscular hemoglobin (mass per erythrocyte) 28 pg 25-34 Automated erythrocyte mean corpuscular hemoglobin concentration measurement ( mass/volume) 34 g/dL 32-36 Automated erythrocyte distribution width ratio 16.6 % 10.0-14.5 Automated blood platelet count (count/volume) 195 10*3/uL 130-400 Automated blood platelet mean volume measurement 10.4 [foz_us] 7.4-10.4 Automated blood neutrophils/100 leukocytes 68 % 42-75 Automated blood lymphocytes/100 leukocytes 14 % 12-44 Blood monocytes/100 leukocytes 8 % 0-12 Automated blood eosinophils/100 leukocytes 10 % 0-10 Automated blood basophils/100 leukocytes 0 % 0-10 Blood neutrophils automated count (number/volume) 7.4 10*3 1.8-7.8 Blood lymphocytes automated count (number/volume) 1.5 10*3 1.0-4.0 Blood monocytes automated count (number/volume) 0.9 10*3 0.0-1.0 Automated eosinophil count 1.1 10*3/uL 0.0-0.3 Automated blood basophil count (count/volume) 0.0 10*3/uL 0.0-0.1 Complete urinalysis with reflex to culture - 06/18/17 07:30 Urine color determination YELLOW NRG Urine clarity determination CLEAR NRG Urine pH measurement by test strip 7 5-9 Specific gravity of urine by test strip 1.010 1.016- 1.022 Urine protein assay by test strip, semi-quantitative NEGATIVE NEGATIVE Urine glucose detection by automated test strip NEGATIVE NEGATIVE Erythrocytes detection in urine sediment by light microscopy NEGATIVE NEGATIVE Urine ketones detection by automated test strip NEGATIVE NEGATIVE Urine nitrite detection by test strip NEGATIVE NEGATIVE Urine total bilirubin detection by test strip NEGATIVE NEGATIVE Urine urobilinogen measurement by automated test strip (mass/volume) NORMAL NORMAL Urine leukocyte esterase detection by dipstick 1+ NEGATIVE Automated urine sediment erythrocyte count by microscopy (number/high power field) NONE NRG Automated urine sediment leukocyte count by microscopy (number/high power field ) [HPF] NRG Bacteria detection in urine sediment by light microscopy TRACE NRG Squamous epithelial cells detection in urine sediment by light microscopy 2-5 NRG Crystals detection in urine sediment by light microscopy NONE NRG Casts detection in urine sediment by light microscopy NONE NRG Mucus detection in urine sediment by light microscopy MODERATE NRG Complete urinalysis with reflex to culture NO NRG Blood type T Indirect antibody screen panel - 06/18/17 07:30 ABO+Rh group OP NRG Transfusion band number [id number] NRG Blood group antibody screen NEGATIVE NRG Encounters ACCT No. Visit Date/Time Discharge Status Pt. Type Provider Facility Loc./Unit Complaint [id number] 06/10/2017 13:02:00 06/10/2017 13:26:00 DIS Outpatient IVETTE PEREZ DO [facility] PREOP SECTION [id number] 06/10/2017 04:36:00 06/10/2017 06:25:00 DIS Outpatient BRIGETTE NAJERA MD [facility] [facility] WSo CONTRACTIONS [id number] 05/02/2017 21:38:00 05/03/2017 00:40:00 DIS Outpatient BRIGETTE NAJERA MD Via [facility] WSo CONTRACTIONS [id number] 01/30/2017 09:37:00 01/30/2017 23:59:59 CLS Outpatient BRIGETTE NAJERA MD Via [facility] RAD [id number] NORMAL [id number] 04/09/2016 09:01:00 04/09/2016 23:59:59 CLS Outpatient BRIGETTE NAJERA MD Via [facility] RAD ELEVATED LIVER ENZYMES [id number] 02/11/2016 06:01:00 02/13/2016 15:15:00 DIS Inpatient IVETTE PEREZ DO Via [facility] LDRP PREVIOUS LOW TRANSVERSE [id number] 02/04/2016 08:29:00 02/04/2016 08:50:00 DIS Outpatient IVETTE PEREZ DO Via [facility] PREOP PREVIOUS LOW TRANSVERSE [id number] 02/01/2016 15:50:00 02/01/2016 17:36:00 DIS Outpatient BRIGETTE NAJERA MD Via [facility] WSo BLOOD PRESSURE CHECK AND MONITORING [id number] 10/16/2015 11:21:00 10/16/2015 23:59:59 CLS Outpatient BRIGETTE NAJERA MD Via [facility] RAD SURVEY [id number] 08/10/2015 12:51:00 08/10/2015 23:59:59 CLS Outpatient BRIGETTE NAJERA MD Via [facility] RAD ANATOMY [id number] 12/06/2014 13:02:00 12/06/2014 23:59:59 CLS Outpatient OCTAVIO GILLILAND DO Via [facility] RAD FOLLOW UP FOR THREATHENED , BRADYCAR [id number] 11/26/2014 15:57:00 11/26/2014 18:15:00 DIS Emergency DEBBIE MARX Via [facility] ER MISCARRIAGE @ 6 WEEKS/ HEAVY BLEEDING [id number] 11/25/2014 13:32:00 11/25/2014 16:31:00 DIS Emergency GUANAKO FARLEY DO Via [facility] ER 7 WEEKS PREG/BLEEDING/ CRAMPING [id number] 11/22/2014 06:00:00 11/22/2014 08:39:00 DIS Emergency YULIA CARSON MD Via [facility] ER VAG BLEEDING, 6 WKS PREG [id number] 10/27/2014 19:45:00 10/27/2014 21:38:00 DIS Emergency YULIA CARSON MD Via [facility] ER R SIDE WAIST PAIN [id number] 06/18/2017 09:00:00 PEN Preadmit FENECH DO, IVETTE S SECTION
[2017-06-18] MEDS: HYDROcodone/APAP 5 MG/325 MG (LORTAB) TAB PO PRN ×2 (12:19→21:48)
--- NOTE | 2017-06-18 12:29 | OPERATIVE REPORT ---
DATE OF SERVICE: 06/18/2017 PREOPERATIVE DIAGNOSES: 1. A 22-year-old G4, P2 at 39 weeks and 2 days' gestation. 2. Previous section x2. POSTOPERATIVE DIAGNOSES: 1. A 22-year-old G4, P2 at 39 weeks and 2 days' gestation. 2. Previous section x2. PROCEDURE PERFORMED: Repeat low transverse section. SURGEON: Sergio Segovia DO REPORTING CONSULTANT: ELLA Castellanos ANESTHESIA: Spinal. ESTIMATED BLOOD LOSS: 500 mL. URINE OUTPUT: 200 mL clear at the end of the procedure. FLUIDS: 1500 mL of lactate Ringer solution. FINDINGS: Alive male infant, weighing 6 pounds 11 ounces, Apgars of 8 and 9. Grossly normal appearing uterus, bilateral fallopian tubes and ovaries. SPECIMEN SENT: Placenta. INDICATIONS FOR PROCEDURE: This 22-year-old female patient had sought care at the [facility] and had consulted to my service for repeat . I took care of her with her previous . We discussed briefly again the risks involved with including bleeding, infection, damage to any surrounding structures including but not limited to bowel, bladder, ureter, kidneys, need for blood transfusion, risk from anesthesia, postoperative complications that could occur as well as followup. After everything was discussed with the patient, consent was obtained in the preoperative area and the patient was taken to the operating room. OPERATIVE REPORT IN DETAIL: Once in the operating room, spinal anesthesia was found to be adequate. She was placed in supine position with leftward tilt, prepped and draped in normal sterile fashion. Anesthesia was tested and timeout was performed. A Pfannenstiel skin incision was made through the previously existing scar using a knife and carried down to underlying fascia using Bovie cautery. The fascial incision was extended laterally using Bovie cautery. Superior edge of fascial incision was then grasped with Anthony clamps, tented up and dissected off the underlying rectus muscles. The inferior aspect of the fascial incision was then grasped with Anthony clamps, tented up and dissected off the underlying rectus muscles. The rectus muscles were dissected down the midline using Carcamo scissors, which exposed the peritoneum which entered bluntly and extended using blunt traction. An Daniel ring retractor was placed in the peritoneal incision, which offers excellent lateral sidewall retraction. I am able to identify the lower uterine segment, which was found to be thinned out. I made an incision to the vesicouterine peritoneum and bluntly dissected off the lower uterine segment. I then proceeded with myotomy using the knife until the membranes are visualized, at which point I extended the uterine incision laterally and superiorly using bandage scissors. Amniotomy was then performed using an Allis clamp. Clear fluid is noted. The was found in vertex presentation. With gentle fundal pressure, the infant's head is elevated above the incision and delivered through the incision where the nares and oropharynx were then bulb suctioned. The anterior and posterior shoulders were then delivered. was then brought out to the operative field where the cord was doubly clamped and cut and sent off to the waiting mortgage loan counselor in attendance. Cord blood was collected, 3-vessel cord with intact placenta delivered spontaneously thereafter. IV Pitocin is initiated to facilitate uterine contractions. Uterine fundus became firmer by bimanual massage. Uterus was then exteriorized and cleared of all endometrial clots and debris. I then closed the uterine incision using #0 Vicryl suture in running locked fashion. Second layer of imbricating #0 Monocryl was placed. Excellent hemostasis was noted after doing this. The uterus was then placed back within the pelvis where it is copiously irrigated using normal saline. There was no active bleeding noted from any of my dissection planes. I then placed Interceed antiadhesive over my low transverse incision and proceeded with closing the peritoneum using 3-0 Vicryl suture in running fashion. The rectus muscles reapproximated using 3-0 Vicryl suture in an interrupted fashion. The fascia was reapproximated using #0 Vicryl suture in running fashion. Subcutaneous tissue was reapproximated using 3-0 plain in an interrupted subcutaneous stitch and the skin reapproximated using 4-0 Monocryl running subcuticular. Dermabond was applied to incision, sterile dressings with adhesive white tape. The patient tolerated the procedure well, sent to recovery room in stable condition. Lap and sponge counts were correct at the end of the procedure. Instrument count was correct as well. Two grams of Ancef given preoperatively for infection prophylaxis. Job ID: [id number] DocumentID: [id number] Dictated Date: 06/18/2017 10:12:55 Telephone Switchboard Operator Date: 06/18/2017 11:03:49 LAURA
[2017-06-18] MEDS: CATHETER FLUSH 10 ML SYR IV SCH ×2 (16:56→23:10)
[2017-06-18] MEDS: DOCUSATE SODIUM 100 MG (COLACE) CAP PO SCH (20:20)
[2017-06-19] MEDS: CATHETER FLUSH 10 ML SYR IV SCH ×2 (04:10→19:53)
[2017-06-19] MEDS: KETOROLAC 30 MG/ML VIAL IVP SCH (04:10)
[2017-06-19 04:14] VITALS: BP 99/62
[2017-06-19 05:44] LABS: BASOPHILS % (AUTO) 0 % (0-10); EOSINOPHILS # (AUTO) 0.7 10^3/uL (0.0-0.3); EOSINOPHILS % (AUTO) 5 % (0-10); HEMATOCRIT 37 % (35-52); HEMOGLOBIN 12.5 G/DL (11.5-16.0); LYMPHOCYTES # (AUTO) 2.2 X 10^3 (1.0-4.0); LYMPHOCYTES % (AUTO) 15 % (12-44); MEAN CORPUSCULAR HEMOGLOBIN 28 PG (25-34); MEAN CORPUSCULAR HGB CONC 34 G/DL (32-36); MEAN CORPUSCULAR VOLUME 82 FL (80-99); MEAN PLATELET VOLUME 10.3 FL (7.4-10.4); MONOCYTES # (AUTO) 1.3 X 10^3 (0.0-1.0); MONOCYTES % (AUTO) 9 % (0-12); NEUTROPHILS # (AUTO) 10.3 X 10^3 (1.8-7.8); NEUTROPHILS % (AUTO) 71 % (42-75); PLATELET COUNT 223 10^3/uL (130-400); RED BLOOD COUNT 4.46 10^6/uL (4.35-5.85); RED CELL DISTRIBUTION WIDTH 16.7 % (10.0-14.5); WHITE BLOOD COUNT 14.5 10^3/uL (4.3-11.0)
--- NOTE | 2017-06-19 07:18 | Anesthesia-Regional Post-Op ---
Regional Patient Condition Mental Status: Alert, Oriented x3 Circulation: Same as Pre-Op Headache: Absent Sensation: Full Recovery Motor Block: Absent Post Op Complications Complications None Follow Up Care/Instructions Patient Instructions None needed. Anesthesia/Patient Condition Patient is doing well, no complaints, stable vital signs, no apparent adverse anesthesia problems. No complications reported per nursing. OLIVIA AGUILA CRNA Jun 19, 2017 07:18
[2017-06-19 08:00] VITALS: BP 102/62
[2017-06-19] MEDS: DOCUSATE SODIUM 100 MG (COLACE) CAP PO SCH ×2 (09:00→19:53)
--- NOTE | 2017-06-19 09:17 | Postpartum Progress Note ---
Note Note Day # 1 Subjective: Patient is without complaints. Ambulating, voiding. Tolerating a regular diet without nausea or vomiting. Normal lochia. Pain is well controlled with oral pain medications. Objective: Vital Sign - Last 24 Hours 06/18/17 06/18/17 06/18/17 06/18/17 10:45 12:40 15:06 16:30 Temp 97.1 98.2 99.2 Pulse 87 76 68 Resp 18 18 18 B/P (MAP) 95/59 (71) 118/74 (89) 111/66 (81) Pulse Ox 100 100 97 O2 Delivery Room Air Room Air Room Air Room Air 06/18/17 06/18/17 06/19/17 20:00 23:44 04:14 Temp 97.6 97.3 97.4 Pulse 70 68 71 Resp 16 16 16 B/P (MAP) 109/70 (83) 105/65 (78) 99/62 (74) Pulse Ox 98 97 97 O2 Delivery Room Air Room Air Room Air Intake and Output 06/18/17 06/18/17 06/19/17 15:00 23:00 07:00 Intake Total 1050 ml 1000 ml 400 ml Output Total 200 ml 300 ml 500 ml Balance 850 ml 700 ml -100 ml Laboratory Tests Test 06/19/17 05:15 Range/Units White Blood Count 14.5 H 4.3-11.0 10^3/uL Red Blood Count 4.46 4.35-5.85 10^6/uL Hemoglobin 12.5 11.5-16.0 G/DL Hematocrit 37 35-52 % Mean Corpuscular Volume 82 80-99 FL Mean Corpuscular Hemoglobin 28 25-34 PG Mean Corpuscular Hemoglobin Concent 34 32-36 G/DL Red Cell Distribution Width 16.7 H 10.0-14.5 % Platelet Count 223 130-400 10^3/uL Mean Platelet Volume 10.3 7.4-10.4 FL Neutrophils (%) (Auto) 71 42-75 % Lymphocytes (%) (Auto) 15 12-44 % Monocytes (%) (Auto) 9 0-12 % Eosinophils (%) (Auto) 5 0-10 % Basophils (%) (Auto) 0 0-10 % Neutrophils # (Auto) 10.3 H 1.8-7.8 X 10^3 Lymphocytes # (Auto) 2.2 1.0-4.0 X 10^3 Monocytes # (Auto) 1.3 H 0.0-1.0 X 10^3 Eosinophils # (Auto) 0.7 H 0.0-0.3 10^3/uL Basophils # (Auto) 0.0 0.0-0.1 10^3/uL Physical Exam: General - Alert and oriented, no apparent distress Abdomen - Soft, appropriately tender to palpation, non-distended, fundus firm at umbilicus Extremities - no edema, negative Sean's bilaterally Incision- c/d/i Assessment: POD 1 RLTCS Plan: Routine care. Encourage breast feeding. Encourage ambulation. Ferrous sulfate supplementation. Plan for discharge tomorrow Vitals - Labs Vital Signs - I&O Vital Signs Date Time Temp Pulse Resp B/P (MAP) Pulse Ox O2 Delivery O2 Flow Rate FiO2 06/19/17 04:14 97.4 71 16 99/62 (74) 97 Room Air 06/18/17 23:44 97.3 68 16 105/65 (78) 97 Room Air 06/18/17 20:00 97.6 70 16 109/70 (83) 98 Room Air 06/18/17 16:30 99.2 68 18 111/66 (81) 97 Room Air 06/18/17 15:06 Room Air 06/18/17 12:40 98.2 76 18 118/74 (89) 100 Room Air 06/18/17 10:45 97.1 87 18 95/59 (71) 100 Room Air I & O 06/19/17 07:00 Intake Total 2450 ml Output Total 1000 ml Balance 1450 ml Labs Laboratory Tests 06/19/17 05:15: White Blood Count 14.5H, Red Blood Count 4.46, Hemoglobin 12.5, Hematocrit 37, Mean Corpuscular Volume 82, Mean Corpuscular Hemoglobin 28, Mean Corpuscular Hemoglobin Concent 34, Red Cell Distribution Width 16.7H, Platelet Count 223, Mean Platelet Volume 10.3, Neutrophils (%) (Auto) 71, Lymphocytes (%) (Auto) 15 , Monocytes (%) (Auto) 9, Eosinophils (%) (Auto) 5, Basophils (%) (Auto) 0, Neutrophils # (Auto) 10.3H, Lymphocytes # (Auto) 2.2, Monocytes # (Auto) 1.3H, Eosinophils # (Auto) 0.7H, Basophils # (Auto) 0.0 IVETTE PEREZ DO Jun 19, 2017 9:17 am
[2017-06-19 12:00] VITALS: BP 103/62
[2017-06-19] MEDS: HYDROcodone/APAP 5 MG/325 MG (LORTAB) TAB PO PRN (12:03)
[2017-06-19] MEDS: IBUPROFEN 600 MG (MOTRIN) TAB PO SCH ×3 (12:04→23:50)
[2017-06-19 18:00] VITALS: BP 105/68
[2017-06-20 00:04] VITALS: BP 94/57
[2017-06-20] MEDS: IBUPROFEN 600 MG (MOTRIN) TAB PO SCH ×2 (04:58→10:20)
[2017-06-20 06:28] VITALS: BP 104/60
[2017-06-20] MEDS: CATHETER FLUSH 10 ML SYR IV SCH (06:30)
[2017-06-20 08:00] VITALS: BP 110/72
--- NOTE | 2017-06-20 08:43 | Postpartum Progress Note ---
Post Op Post-operative Day #1 s/p RLTCS Subjective: Patient is without complaints. Ambulating, voiding after tubbs removed. Tolerating a regular diet without nausea or vomiting. Normal lochia. Pain is well controlled with oral pain medications. Passing flatus. [] feeding. [] Objective: 06/20/17 06/20/17 00:04 06:28 Temp 97.9 97.6 Pulse 80 84 Resp 20 20 B/P (MAP) 94/57 (69) 104/60 (75) Pulse Ox 97 98 O2 Delivery Room Air Room Air 06/20/17 00:00 Intake Total 1680 ml Output Total 2175 ml Balance -495 ml Physical Exam: General - Alert and oriented, no apparent distress Abdomen - Soft, appropriately tender to palpation, non-distended, fundus firm at umbilicus Incision - clean, dry and intact; no erythema or induration, no drainage Extremities - no edema, negative Sean's bilaterally [] Assessment: [] post-operative day # [], status post []. Recovering well, hemodynamically stable Acute blood loss anemia [] Plan: Routine post-operative care. Encourage breast feeding. Encourage ambulation. VTE prophylaxis: SCDs. Ferrous sulfate supplementation. Plan for discharge [] Vitals - Labs Vital Signs - I&O Vital Signs Date Time Temp Pulse Resp B/P (MAP) Pulse Ox O2 Delivery O2 Flow Rate FiO2 06/20/17 06:28 97.6 84 20 104/60 (75) 98 Room Air 06/20/17 00:04 97.9 80 20 94/57 (69) 97 Room Air 06/19/17 18:00 97.8 75 18 105/68 (80) 98 Room Air 06/19/17 12:00 97.8 76 18 103/62 (76) 99 Room Air I & O 06/20/17 07:00 Intake Total 2280 ml Output Total 2875 ml Balance -595 ml BLANK TORO DO Jun 20, 2017 08:43
[2017-06-20] MEDS: DOCUSATE SODIUM 100 MG (COLACE) CAP PO SCH (10:18)
== END 2017-06-20 15:00 | disposition home or self-care (01) | DRG 766 ==
LOC: LDRP 06:50
PROVIDERS: ADMIT Obstetrics & Gynecology; ATTEND Obstetrics & Gynecology
PROC: 10D00Z1 Extraction of Products of Conception, Low, Open Approach (ICD-10-PCS; principal; 2017-06-18 08:55)
DX: O34.211 Maternal care for low transverse scar from previous cesarean delivery (principal); Z3A.39 39 weeks gestation of pregnancy; Z37.0 Single live birth; Z23 Encounter for immunization
CPT/HCPCS: 36415; 81000; 85025; 86850; 86900; 86901; 88307; 90707; 94664